=== PATIENT | female | born 1995 | race Hispanic/Latino ===

== ENCOUNTER 2017-10-18 12:10 | Inpatient (IN) | payer OTHER, MEDICAID ==
[~2017-10-18] VITALS: Ht 154.9 cm; Wt 72.6 kg
[2017-10-18 13:01] LABS: APPEARANCE,URINE Cloudy (CLEAR); BILIRUBIN,URINE Negative (NEGATIVE); COLOR,URINE Dark Yellow (YELLOW); GLUCOSE, URINE (UA) Negative (NEGATIVE); KETONES,URINE Negative (NEGATIVE); LEUKOCYTE ESTERASE ,URINE Moderate (NEGATIVE); NITRATE,URINE Negative (NEGATIVE); OCCULT BLOOD,URINE Large (NEGATIVE); PROTEIN,URINE POS 1+ (NEGATIVE)
[2017-10-18 13:09] LABS: HEMATOCRIT 35.3 % (36-48); MEAN CORPUSCULAR HGB CONC 34.3 g/dL (32.0-36.0); MEAN CORPUSCULAR VOLUME 87.5 fL (80-100); PLATELET COUNT (AUTO) 270 K/uL (130-400); RED BLOOD CELL COUNT(AUTO) 4.03 MIL/uL (4.00-5.50); RED CELL DISTRIBUTION WIDTH 13.2 % (11.0-15.5); WHITE BLOOD COUNT (AUTO) 10.5 K/uL (4.8-10.8)
[2017-10-18] MEDS: DINOPROSTONE 10 MG VAGINAL SUPP VG SCH (13:22)
[2017-10-18 13:35] LABS: BACTERIA,URINE Moderate /HPF (None Seen)
[2017-10-18 14:22] LABS: AMPHET/METH SCREEN,URINE NEGATIVE (NEGATIVE); BARBITURATE SCREEN, URINE NEGATIVE (NEGATIVE); BENZODIAZEPINES SCREEN,URINE NEGATIVE (NEGATIVE); CANNABINOID SCREEN,URINE NEGATIVE (NEGATIVE); COCAINE SCREEN,URINE NEGATIVE (NEGATIVE); OPIATE SCREEN,URINE NEGATIVE (NEGATIVE); PHENCYCLIDINE SCREEN,URINE NEGATIVE (NEGATIVE)
[2017-10-18] MEDS: LACTATED RINGERS 1000ML 1,000 ML IV PRN (20:59)
[2017-10-18] MEDS ORDERED: PROMETHAZINE HCL 25 MG/ML 1ML AMPULE IM PRN (22:30)
[2017-10-18] MEDS ORDERED: MEPERIDINE-PF 50 MG/ML SYG IVP PRN (22:30)
[2017-10-19] MEDS: LACTATED RINGERS 1000ML 1,000 ML IV PRN (00:22)
[2017-10-19] MEDS ORDERED: LACTATED RINGERS 1000ML 1,000 ML IV ONE (04:11)
[2017-10-19] MEDS ORDERED: OXYTOCIN 10 USP UNITS/ML ONE ×2 (04:12→16:53)
[2017-10-19] MEDS ORDERED: OXYTOCIN-LR 20 UNITS/1000 ML 1,000 ML IV SCH (04:15)
[2017-10-19] MEDS ORDERED: OXYTOCIN 10 USP UNITS/ML 20 UNIT in LACTATED RINGERS 1000ML 1,000 ML IV SCH (04:15)
[2017-10-19 07:32] LABS: HEPATITIS Bs ANTIGEN SCREEN P Negative (Negative)
[2017-10-19] MEDS ORDERED: PROMETHAZINE HCL 25 MG/ML 1ML AMPULE IM SCH ×2 (07:45→12:00)
[2017-10-19] MEDS ORDERED: MEPERIDINE-PF 50 MG/ML SYG IVP SCH ×3 (07:45→15:30)
[2017-10-19] MEDS ORDERED: CEFTRIAXONE SODIUM 1 GM IM SCH ×2 (09:30→09:54)
[2017-10-19] MEDS ORDERED: LIDOCAINE HCL 1% 20 ML VIAL MISC SCH (10:00)
[2017-10-19] MEDS: DINOPROSTONE 10 MG VAGINAL SUPP VG SCH (12:30)
[2017-10-19] MEDS ORDERED: PROMETHAZINE HCL 25 MG/ML 1ML AMPULE IM PRN ×3 (15:30→22:15)
[2017-10-19] MEDS ORDERED: LACTATED RINGERS 1000ML 1,000 ML IV SCH (16:15)
[2017-10-19] MEDS ORDERED: CEFAZOLIN SODIUM 1 GM VIAL IVP PRN (16:15)
[2017-10-19] MEDS ORDERED: SENSORCAINE/DEXT/PF 0.75% 2ML AMP IJ ONE (16:29)
[2017-10-19] MEDS ORDERED: DURAMORPH PF1 MG/ML 10ML AMP IV ONE (16:30)
[2017-10-19] MEDS ORDERED: CEFAZOLIN SODIUM 1 GM VIAL ONE ×2 (16:30→16:53)
[2017-10-19] MEDS ORDERED: MORPHINE SULFATE 10 MG/ML 1ML SYG ONE (16:54)
[2017-10-19] MEDS ORDERED: CEFAZOLIN SODIUM 1 GM VIAL IVP ONE (17:15)
[2017-10-19] MEDS ORDERED: METHYLERGONOVINE MALEATE 0.2 MG/1 ML ML ONE (17:24)
[2017-10-19] MEDS ORDERED: OXYTOCIN 10 UNIT/1ML 10ML VIAL ONE (17:29)
[2017-10-19] MEDS ORDERED: PHENYLEPHRINE HCL 10 MG/ML 1ML VIAL IV ONE (17:29)
[2017-10-19] MEDS ORDERED: SODIUM CHLORIDE 0.9% 10 ML VIAL ONE (17:29)
[2017-10-19] MEDS ORDERED: OXYTOCIN-LR 20 UNITS/1000 ML 1,000 ML IV PRN (18:11)
[2017-10-19] MEDS ORDERED: MEPERIDINE-PF 75 MG/ML SYG IM PRN (18:15)
[2017-10-19] MEDS ORDERED: SODIUM CHLORIDE 0.9% 10 ML VIAL IVP PRN (18:15)
[2017-10-19 21:40] VITALS: BP 117/56
[2017-10-19 21:45] VITALS: BP 108/63
[2017-10-19] MEDS ORDERED: ONDANSETRON HCL 4 MG/2 ML 8 MG in SODIUM CHLORIDE 0.9% 50 ML IVP NR (22:15)
[2017-10-19] MEDS ORDERED: MORPHINE SULFATE 4 MG/1ML SYG IVP PRN (22:15)
[2017-10-19] MEDS ORDERED: METOCLOPRAMIDE 10 MG/2 ML VIAL IVP PRN (22:15)
[2017-10-19] MEDS ORDERED: HYDROCODONE/ACETAMINOPHEN 5/325 MG TAB PO PRN ×2 (22:15)
[2017-10-19] MEDS ORDERED: ONDANSETRON HCL 4 MG/2 ML VIAL IVP PRN ×2 (22:15)
[2017-10-19] MEDS ORDERED: DiphenhydrAMINE HCL 50 MG/ML VIAL IVP PRN (22:15)
[2017-10-19] MEDS ORDERED: NALOXONE HCL 0.4 MG/1 ML ML IVP PRN ×2 (22:15)
[2017-10-19] MEDS ORDERED: EPHEDRINE SULFATE 50 MG/ML AMPULE IVP PRN (22:15)
[2017-10-20] MEDS: DEXTROSE 5 %-0.45 % NACL 1,000 ML IV PRN ×3 (01:37→14:21)
[2017-10-20 04:38] VITALS: BP 96/62
[2017-10-20] MEDS ORDERED: PNV1TABL43 PO (05:11)
[2017-10-20 06:31] LABS: HEMATOCRIT 29.5 % (36-48); MEAN CORPUSCULAR HEMOGLOBIN 29.7 pg (27.0-33.0); MEAN CORPUSCULAR HGB CONC 34.1 g/dL (32.0-36.0); MEAN CORPUSCULAR VOLUME 87.1 fL (80-100); PLATELET COUNT (AUTO) 252 K/uL (130-400); RED BLOOD CELL COUNT(AUTO) 3.39 MIL/uL (4.00-5.50); RED CELL DISTRIBUTION WIDTH 13.4 % (11.0-15.5); WHITE BLOOD COUNT (AUTO) 18.4 K/uL (4.8-10.8)
[2017-10-20 07:38] VITALS: BP 99/63
[2017-10-20] MEDS ORDERED: BISACODYL 10 MG SUPP.RECT RC PRN (08:15)
[2017-10-20] MEDS ORDERED: ACETAMINOPHEN EXTRA STRENGTH 500 MG TABLET PO PRN (08:15)
[2017-10-20] MEDS ORDERED: DIPHENHYDRAMINE HCL 25 MG CAPSULE PO PRN (08:15)
[2017-10-20] MEDS ORDERED: HYDROCODONE/ACETAMINOPHEN 5/325 MG TAB PO PRN (08:15)
[2017-10-20] MEDS ORDERED: LANOLIN 30GM OINTMENT TP PRN (08:15)
[2017-10-20] MEDS: SIMETHICONE 80 MG TAB.CHEW PO PRN ×3 (09:38→20:35)
[2017-10-20] MEDS: DOCUSATE SODIUM 100 MG CAP PO SCH ×2 (09:38→20:36)
[2017-10-20 11:30] VITALS: BP 96/50
[2017-10-20] MEDS: DINOPROSTONE 10 MG VAGINAL SUPP VG SCH (12:21)
[2017-10-20] MEDS: ACETAMINOPHEN-CODEINE 300/30MG TAB PO PRN ×2 (13:12→20:37)
[2017-10-20] MEDS: IBUPROFEN 600 MG TABLET PO PRN (15:16)
[2017-10-20 15:50] VITALS: BP 119/68
[2017-10-20 19:48] VITALS: BP 111/64
[2017-10-20] MEDS ORDERED: ONDANSETRON HCL MDV 20ML 2 MG/ML VIAL IVP PRN ×2 (20:24)
[2017-10-21 00:27] VITALS: BP 96/56
[2017-10-21] MEDS: DIPH,PERTUSS(ACELL),TET VAC/PF 0.5 ML VIAL IM SCH ×2 (02:53→02:54)
[2017-10-21] MEDS: DINOPROSTONE 10 MG VAGINAL SUPP VG SCH (02:54)
[2017-10-21 04:06] VITALS: BP 110/60
[2017-10-21 07:47] VITALS: BP 115/67
[2017-10-21] MEDS: DOCUSATE SODIUM 100 MG CAP PO SCH (09:23)
[2017-10-21] MEDS: SIMETHICONE 80 MG TAB.CHEW PO PRN ×2 (09:23→13:16)
[2017-10-21] MEDS: IBUPROFEN 600 MG TABLET PO PRN (09:24)
[2017-10-21 12:24] VITALS: BP 105/81
[2017-10-21] MEDS: ACETAMINOPHEN-CODEINE 300/30MG TAB PO PRN (13:18)
== END 2017-10-21 15:35 | disposition home or self-care (01) | DRG 765 ==
LOC: LDH 12:10 → WSH 10-19 21:45
PROVIDERS: ADMIT Obstetrics & Gynecology; ATTEND Obstetrics & Gynecology
PROC: 3E0234Z Introduction of Serum, Toxoid and Vaccine into Muscle, Percutaneous Approach (ICD-10-PCS; 2017-10-19)
PROC: 10D00Z1 Extraction of Products of Conception, Low, Open Approach (ICD-10-PCS; principal; 2017-10-19 17:00)
DX: O62.2 Other uterine inertia (principal); D62 Acute posthemorrhagic anemia; Z23 Encounter for immunization; Z37.0 Single live birth; Z3A.40 40 weeks gestation of pregnancy
CPT/HCPCS: 36415; 59510; 80305; 81001; 85027; 86592; 86850; 86900; 86901; 87340; 90715; A4344; A4450; A4606; J0690; J0696; J2175; J2210; J2270; J2274; J2370; J2550; J2590; J3490; J7120

== ENCOUNTER 2017-12-03 17:16 | Emergency (ER) | payer OTHER, MEDICAID ==
[~2017-12-03 17:16] MED LIST: PNV1TABL43 PO
[2017-12-03] MEDS ORDERED: SODIUM CHLORIDE 0.9% 1000ML 1,000 ML IV ONE (18:10)
[2017-12-03 18:18] LABS: BASOPHILS % (AUTO) 0.6 % (0.0-5.0); EOSINOPHILS % (AUTO) 2.8 % (0.0-8.0); HEMATOCRIT 35.2 % (36-48); LYMPHOCYTES % (AUTO) 39.1 % (21.0-51.0); MEAN CORPUSCULAR HGB CONC 34.4 g/dL (32.0-36.0); MEAN CORPUSCULAR VOLUME 84.3 fL (80-100); MONOCYTES % (AUTO) 5.6 % (3.0-13.0); NEUTROPHILS % (AUTO) 51.9 % (40.0-77.0); PLATELET COUNT (AUTO) 365 K/uL (130-400); RED BLOOD CELL COUNT(AUTO) 4.17 MIL/uL (4.00-5.50); RED CELL DISTRIBUTION WIDTH 13.3 % (11.0-15.5); WHITE BLOOD COUNT (AUTO) 7.6 K/uL (4.8-10.8)
[2017-12-03 18:28] LABS: CREATININE 0.6 mg/dL (0.5-1.5); POTASSIUM 3.5 mmol/L (3.5-5.1)
== END 2017-12-03 19:32 | disposition home or self-care (01) ==
LOC: EDH 17:16
DX: N93.9 Abnormal uterine and vaginal bleeding, unspecified (principal); Z98.890 Other specified postprocedural states
CPT/HCPCS: 36415; 80048; 85025; 86850; 86900; 86901; 99284; J7030